=== PATIENT | female | born 1950 | race Caucasian/White ===

== ENCOUNTER → 2022-12-12 | Outpatient (CLI) | payer MEDICARE, SELFPAY ==
[2022-12-12 12:12] LABS: AST(SGOT) 15 U/L (15-37); Alanine Aminotransfer ALT/SGPT 23 U/L (13-56); Albumin, Serum 3.5 g/dL (3.2-5.0); Alkaline Phosphatase 150 U/L (45-117); Bilirubin, Direct 0.07 mg/dL (0.00-0.30); Globulin 3.5 g/dL (2.2-4.2)
== END | disposition home or self-care (01) ==
PROVIDERS: PCP Family Medicine; Referring Provider Surgery; Visit Provider Surgery
DX: K80.20 Calculus of gallbladder without cholecystitis without obstruction (principal); A41.9 Sepsis, unspecified organism
CPT/HCPCS: 36415; 80076

== ENCOUNTER → 2022-12-30 | Outpatient (CLI) | payer MEDICARE, SELFPAY ==
--- NOTE | 2022-12-30 07:31 | CT_ITS ---
STUDY: CT ABDOMEN AND PELVIS WITH CONTRAST REASON FOR EXAM: Female, 72 years old. Liver cyst -- new after hospitalization 07/2022 for GB at [facility] RADIATION DOSAGE (If Supplied By Facility): CTDIvol = ( 18.68 ) mGy, DLP = ( 1229.73 ) mGycm TECHNIQUE: Transaxial images were obtained from the dome of the diaphragm to the symphysis pubis without oral contrast. IV 100mL Isovue-[id number] was administered. Sagittal and coronal images were reconstructed. Individualized dose optimization techniques were used for this CT. COMPARISON: Comparison is made with prior ultrasound dated November 04, 2022. FINDINGS: The visualized lung bases are unremarkable. There is calcification of the mitral valve annulus. There is decreased attenuation of the liver consistent with steatosis. There are multiple gallstones. Normal spleen. Normal pancreas. Normal bilateral adrenal glands. Normal right kidney. Left parapelvic cysts. There is a small hiatal hernia. Normal small intestine. There are multiple colonic diverticula consistent with diverticulosis. The appendix is visualized and appears normal. There is scattered atherosclerotic calcification of the abdominal aorta, without a demonstrated aneurysm. Normal inferior vena cava. Normal retroperitoneum. Normal urinary bladder. Normal abdominal wall. There are mild degenerative changes of the visualized lumbar spine. CT/Abdomen/Pelvis W IV Cont ONLY IMPRESSION: Multiple gallstones. Fatty infiltration of the liver. Sigmoid diverticulosis. Electronically Signed: Dawit Guevara MD at 13:37 EST ,
[2022-12-30 07:55] LABS: CREATININE FINGERSTICK < 0.9 mg/dL (0.55-1.02); EGFR FINGERSTICK > 60.0000 mL/min (>60)
== END | disposition home or self-care (01) ==
LOC: CT 07:27
PROVIDERS: PCP Family Medicine; Referring Provider Surgery; Visit Provider Surgery
DX: K76.89 Other specified diseases of liver (principal)
CPT/HCPCS: 74177; Q9967